=== PATIENT | female | born 1980 | race American Indian/Alaskan Native ===

== ENCOUNTER 2019-07-24 01:02 | Emergency (ER) | payer OTHER ==
[2019-07-24 01:43] LABS: Absolute Lymphocytes (CBC) 1.8 K/uL (0.7-4.9); Basophils % 0.5 % (0-1.3); Hematocrit 34.4 % (36.0-45.0); Lymphocytes % 23.4 % (15.3-44.8); MPV 8.4 fL (7.6-11.3); RBC Red Blood Cell Count 4.49 M/uL (3.86-4.86)
[2019-07-24 01:53] LABS: Albumin 3.6 g/dL (3.4-5.0); Bilirubin Direct 0.2 mg/dL (0-0.2); Bilirubin Total 0.6 mg/dL (0.2-1.0); Potassium 3.3 mmol/L (3.5-5.1); Protein, Total 7.6 g/dL (6.4-8.2)
[2019-07-24] MEDS ORDERED: NA CHLORIDE 0.9% 1,000 ML ONE (01:53)
[2019-07-24 02:44] LABS: Urine Bacteria <20 /HPF (<20); Urine Culture Reflex Order NOT NEEDED; Urine RBC >50 /HPF (NONE SEEN)
[2019-07-24 02:45] LABS: Urine Urothelial Cells <5 /HPF (NONE SEEN)
[2019-07-24 03:56] LABS: Urine Specific Gravity 1.015 (1.005-1.030)
[2019-07-24 03:57] LABS: Urine Blood 3+ (NEG); Urine Glucose NEGATIVE (NEG); Urine Protein NEGATIVE (NEG); Urine Specific Gravity 1.015 (1.005-1.030)
--- NOTE | 2019-07-24 04:19 | ER ---
Nurse's Notes [facility] Name: Lary La Age: 39 yrs Sex: Female : 1980 Arrival Date: 07/24/2019 Time: 01:06 Bed 14 Private MD: Diagnosis: Right flank pain, 4 mm Right UVJ stone, mild right hydronephrosis/hydroureter Presentation: 07/24 01:14 Presenting complaint: Patient states: she thinks she has a kidney stone she has had one bb in the past she has been having symptoms x 1 week of low abdominal pain and right sided back pain with urinary urgency but last night she started having worse pain. Transition of care: patient was not received from another setting of care. Onset of symptoms was July 16, 2019. Risk Assessment: Do you want to hurt yourself or someone else? Patient reports no desire to harm self or others. Initial Sepsis Screen: Does the patient meet any 2 criteria? No. Patient's initial sepsis screen is negative. Does the patient have a suspected source of infection? No. Patient's initial sepsis screen is negative. Care prior to arrival: None. 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 - Social history:: Smoking status: Patient/guardian denies using tobacco, Patient/guardian denies using alcohol. - Ebola Screening: : No symptoms or risks identified at this time. Screenin:28 Abuse screen: Denies threats or abuse. Nutritional screening: No deficits noted. jd3 Tuberculosis screening: No symptoms or risk factors identified. Fall Risk Ambulatory Aid- None/Bed Rest/Nurse Assist (0 pts). Gait- Normal/Bed Rest/Wheelchair (0 pts) Mental Status- Oriented to own ability (0 pts). Total [place] Fall Scale indicates No Risk (0-24 pts). Assessment: 01:27 General: Appears in no apparent distress. uncomfortable, Behavior is calm, cooperative, jd3 appropriate for age. Pain: Complains of pain in posterior aspect of right lateral abdomen and anterior aspect of right lateral abdomen Quality of pain is described as aching, sharp, Is intermittent. Neuro: Level of Consciousness is awake, alert, obeys commands, Oriented to person, place, time, situation. Cardiovascular: Capillary refill < 3 seconds Patient's skin is warm and dry. Respiratory: Airway is patent Respiratory effort is even, unlabored, Respiratory pattern is regular, symmetrical, Denies cough, shortness of breath. GI: Abdomen is round non-distended, Patient currently denies nausea, vomiting. : No signs and/or symptoms were reported regarding the genitourinary system. EENT: No signs and/or symptoms were reported regarding the EENT system. Derm: Skin is intact, Skin is dry, Skin is normal, Skin temperature is warm. Musculoskeletal: Circulation, motion, and sensation intact. Range of motion: intact in all extremities. 02:48 Reassessment: Patient appears in no apparent distress at this time. Patient and/or ca1 family updated on plan of care and expected duration. Pain level reassessed. Patient is alert, oriented x 3, equal unlabored respirations, skin warm/dry/pink. 03:59 Reassessment: Patient appears in no apparent distress at this time. Patient and/or jd3 family updated on plan of care and expected duration. Pain level reassessed. Patient is alert, oriented x 3, equal unlabored respirations, skin warm/dry/pink. awaiting for results. 04:58 Reassessment: Patient appears in no apparent distress at this time. Patient and/or jd3 family updated on plan of care and expected duration. Pain level reassessed. Patient is alert, oriented x 3, equal unlabored respirations, skin warm/dry/pink. Patient denies pain at this time. Patient states feeling better. Vital Signs: 01:18 BP 141 / 93; Pulse 83; Resp 16 S; Temp 97.9(O); Pulse Ox 99% on R/A; Weight 77.11 kg bb (R); Height 5 ft. 3 in. (160.02 cm) (R); Pain 8/10; 02:27 BP 126 / 90; Pulse 71; Resp 17 S; Pulse Ox 100% on R/A; ca1 04:00 BP 122 / 80; Pulse 83; Resp 18 S; Pulse Ox 100% on R/A; jd3 01:18 Body Mass Index 30.11 (77.11 kg, 160.02 cm) ED Course: 01:06 Patient arrived in ED. cl3 01:08 Jaziel Carlisle MD is Attending Physician. kdr 01:10 Luis Gonsalez, RN is Primary Nurse. jd3 01:17 Triage completed. bb 01:18 Arm band placed on Patient placed in an exam room, on a stretcher, on pulse oximetry. bb 01:23 Inserted saline lock: 20 gauge in left antecubital area, using aseptic technique. Blood jd3 collected. 01:29 Patient has correct armband on for positive identification. Placed in gown. Bed in low jd3 position. Call light in reach. Side rails up X 1. Adult w/ patient. 02:57 CT Stone Protocol In Process Unspecified. EDMS 03:08 CT completed. Patient tolerated procedure well. Patient moved to CT via wheelchair. Patient moved back from [place]. 04:17 Ruy Perez MD is Referral Physician. kdr 04:57 No provider procedures requiring assistance completed. IV discontinued, intact, jd3 bleeding controlled, No redness/swelling at site. Pressure dressing applied. Administered Medications: 01:52 Drug: NS 0.9% 1000 ml Route: IV; Rate: 1 bolus; Site: left antecubital; jd3 04:57 Follow up: Response: No adverse reaction; IV Status: Completed infusion jd3 Outcome: 04:18 Discharge ordered by . kdr 04:58 Discharged to home ambulatory, with family. jd3 04:58 Condition: stable 04:58 Discharge instructions given to patient, Instructed on discharge instructions, follow up and referral plans. medication usage, Demonstrated understanding of instructions, follow-up care, medications, Prescriptions given X 4. 04:59 Patient left the ED. jd3 Signatures: Dispatcher [employer] EDDC Jaziel Carlisle MD MD kdr Hagler, Ervin Rachelle Glover RN RN bb Davies, Jonathon, RN RN jKarla Dodson RN RN ca1 Lewis, Charde cl3
--- NOTE | 2019-07-24 04:20 | EDPHYS ---
Physician Documentation [facility] Name: Lary La Age: 39 yrs Sex: Female : 1980 Arrival Date: 07/24/2019 Time: 01:06 Bed 14 Private MD: ED Physician Jaziel Carlisle HPI: 07/24 05:02 This 39 yrs old Other Female presents to ER via Ambulatory with complaints of Possible kdr Kidney Stone. 05:02 The patient presents with The patient has had generalized low abdominal pain for the kdr past week. Last night, her pain became more right sided and reminded her of when she had had kidney stones previoiusly.. Onset: The symptoms/episode began/occurred gradually, 1 week(s) ago. The symptoms radiate to the right flank. Associated signs and symptoms: Pertinent positives: nausea, Pertinent negatives: anorexia, blood in stools, chest pain, constipation, diarrhea, dysuria, fever, headache, hematuria, palpitations, shortness of breath, vaginal discharge, vomiting, vomiting blood. The symptoms are described as achy, burning, crampy, dull, intermittent, vague. Modifying factors: The symptoms are alleviated by nothing, the symptoms are aggravated by nothing. Severity of pain: At its worst the pain was mild moderate in the emergency department the pain is unchanged. The patient has experienced a previous episode, many years ago. The patient has not recently seen a physician. 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 - Social history:: Smoking status: Patient/guardian denies using tobacco, Patient/guardian denies using alcohol. - Ebola Screening: : No symptoms or risks identified at this time. ROS: 05:02 Constitutional: Negative for fever, chills, and weight loss, Eyes: Negative for injury, kdr pain, redness, and discharge, ENT: Negative for injury, pain, and discharge, Neck: Negative for injury, pain, and swelling, Cardiovascular: Negative for chest pain, palpitations, and edema, Respiratory: Negative for shortness of breath, cough, wheezing, and pleuritic chest pain, Back: Negative for injury and pain, : Negative for injury, bleeding, discharge, and swelling, MS/Extremity: Negative for injury and deformity, Skin: Negative for injury, rash, and discoloration, Neuro: Negative for headache, weakness, numbness, tingling, and seizure activity. Psych: Negative for depression, anxiety, suicide ideation, homicidal ideation, and hallucinations, Allergy/Immunology: Negative for hives, rash, and allergies, Endocrine: Negative for neck swelling, polydipsia, polyuria, polyphagia, and marked weight changes, Hematologic/Lymphatic: Negative for swollen nodes, abnormal bleeding, and unusual bruising. 05:02 Abdomen/GI: Positive for nausea, Right CVA tenderness. Exam: 05:02 Constitutional: This is a well developed, well nourished patient who is awake, alert, kdr and in no acute distress. Head/Face: Normocephalic, atraumatic. Eyes: Pupils equal round and reactive to light, extra-ocular motions intact. Lids and lashes normal. Conjunctiva and sclera are non-icteric and not injected. Cornea within normal limits. Periorbital areas with no swelling, redness, or edema. Neck: Trachea midline, no thyromegaly or masses palpated, and no cervical lymphadenopathy. Supple, full range of motion without nuchal rigidity, or vertebral point tenderness. No Meningismus. Chest/axilla: Normal chest wall appearance and motion. Nontender with no deformity. No lesions are appreciated. Cardiovascular: Regular rate and rhythm with a normal S1 and S2. No gallops, murmurs, or rubs. Normal PMI, no JVD. No pulse deficits. Respiratory: Lungs have equal breath sounds bilaterally, clear to auscultation and percussion. No rales, rhonchi or wheezes noted. No increased work of breathing, no retractions or nasal flaring. Abdomen/GI: Soft, non-tender, with normal bowel sounds. No distension or tympany. No guarding or rebound. No evidence of tenderness throughout. Back: No spinal tenderness. No costovertebral tenderness. Full range of motion. Skin: Warm, dry with normal turgor. Normal color with no rashes, no lesions, and no evidence of cellulitis. MS/ Extremity: Pulses equal, no cyanosis. Neurovascular intact. Full, normal range of motion. Neuro: Awake and alert, GCS 15, oriented to person, place, time, and situation. Cranial nerves II-XII grossly intact. Motor strength 5/5 in all extremities. Sensory grossly intact. Cerebellar exam normal. Normal gait. Psych: Awake, alert, with orientation to person, place and time. Behavior, mood, and affect are within normal limits. Vital Signs: 01:18 BP 141 / 93; Pulse 83; Resp 16 S; Temp 97.9(O); Pulse Ox 99% on R/A; Weight 77.11 kg bb (R); Height 5 ft. 3 in. (160.02 cm) (R); Pain 8/10; 02:27 BP 126 / 90; Pulse 71; Resp 17 S; Pulse Ox 100% on R/A; ca1 04:00 BP 122 / 80; Pulse 83; Resp 18 S; Pulse Ox 100% on R/A; jd3 01:18 Body Mass Index 30.11 (77.11 kg, 160.02 cm) MDM: 04:18 Patient medically screened. kdr 05:02 Data reviewed: vital signs, nurses notes, lab test result(s), radiologic studies. kdr Counseling: I had a detailed discussion with the patient and/or guardian regarding: the historical points, exam findings, and any diagnostic results supporting the discharge/admit diagnosis, lab results, radiology results, the need for outpatient follow up. 07/24 01:08 Order name: Urine Culture [facility] 07/24 01:08 Order name: Urine Microscopic Only; Complete Time: 03:07 [facility] 07/24 01:11 Order name: Basic Metabolic Panel; Complete Time: 03:07 [facility] 07/24 01:11 Order name: CBC with Diff; Complete Time: 03:07 [facility] 07/24 01:11 Order name: Creatinine for Radiology; Complete Time: 03:07 [facility] 07/24 01:11 Order name: Hepatic Function; Complete Time: 03:07 [facility] 07/24 01:08 Order name: Urine Test (obtain specimen); Complete Time: 02:00 [facility] 07/24 01:08 Order name: Urine Dipstick-Ancillary (obtain specimen); Complete Time: 02:00 [facility] 07/24 01:11 Order name: Lipase; Complete Time: 03:07 [facility] 07/24 01:11 Order name: IV Saline Lock; Complete Time: 01:25 kdr 07/24 01:47 Order name: CT Stone Protocol [facility] 07/24 03:35 Order name: Urine Dipstick--Ancillary (enter results); Complete Time: 05:06 tn5 07/24 03:36 Order name: Urine --Ancillary (enter results); Complete Time: 05:06 tn5 07/24 01:11 Order name: Labs collected and sent; Complete Time: 01:25 kdr Administered Medications: 01:52 Drug: NS 0.9% 1000 ml Route: IV; Rate: 1 bolus; Site: left antecubital; jd3 04:57 Follow up: Response: No adverse reaction; IV Status: Completed infusion jd3 Disposition: 07/24/19 04:18 Discharged to Home. Impression: Right flank pain, 4 mm Right UVJ stone, mild right hydronephrosis/hydroureter. - Condition is Stable. - Discharge Instructions: Kidney Stones, [id number], Dietary Guidelines to Help Prevent Kidney Stones. - Prescriptions for Zofran 4 mg Oral Tablet - take 1 tablet by ORAL route every 4-6 hours As needed; 12 tablet. Flomax 0.4 mg Oral Capsule, Sust. Release 24 hr - take 1 capsule by ORAL route once daily 1/2 hour following the same meal each day; 10 capsule. Tramadol 50 mg Oral Tablet - take 1 tablet by ORAL route every 8 hours as needed; 12 tablet. Bactrim DS 800- 160 mg Oral Tablet - take 1 tablet by ORAL route every 12 hours for 3 days; 6 tablet. - Medication Reconciliation Form, Thank You Letter, Antibiotic Education, Prescription Opioid Use form. - Follow up: Private Physician; When: 1 - 2 days; Reason: If symptoms return, Further diagnostic work-up, Recheck today's complaints, Continuance of care, Re-evaluation by your physician. Follow up: Ruy Perez MD; When: 2 - 3 days; Reason: If symptoms return, Further diagnostic work-up, Recheck today's complaints, Continuance of care, Re-evaluation by your physician. - Problem is new. - Symptoms have improved. Signatures: Dispatcher [employer] EDJaziel Blas MD MD kdr Lakeshia Knight, REDUCING MACHINE OPERATOR-C REDUCING MACHINE OPERATOR-Csnw Rachelle Glover, RN RN bb Luis Gonsalez RN RN jd3 Corrections: (The following items were deleted from the chart) 04:59 04:18 07/24/2019 04:18 Discharged to Home. Impression: Right flank pain, 4 mm Right UVJ jd3 stone, mild right hydronephrosis/hydroureter. Condition is Stable. Forms are Medication Reconciliation Form, Thank You Letter, Antibiotic Education, Prescription Opioid Use. Follow up: Private Physician; When: 1 - 2 days; Reason: If symptoms return, Further diagnostic work-up, Recheck today's complaints, Continuance of care, Re-evaluation by your physician. Follow up: Ruy Perez; When: 2 - 3 days; Reason: If symptoms return, Further diagnostic work-up, Recheck today's complaints, Continuance of care, Re-evaluation by your physician. Problem is new. Symptoms have improved. kdr
[2019-07-24 05:07] VITALS: TEMP 97.9
[2019-07-24 05:08] VITALS: O2SAT 100
[2019-07-24 05:09] VITALS: BP 122/80
--- NOTE | 2019-07-25 11:31 | RAD REPORT ---
EXAM DESCRIPTION: CT - Stone Protocol - 07/24/2019 6:44 am CLINICAL HISTORY: Right flank pain, low abdominal pain COMPARISON: None Available. TECHNIQUE: CT of the abdomen and pelvis without IV contrast. Evaluation of the solid organs and vasc ulature is suboptimal due to lack of IV contrast. FINDINGS: Lung Bases: The visualized lung bases are clear. Bones: No destructive bone lesions identified. Abdomen: Liver: The liver has normal size and density. Gallbladder: Prior cholecystectomy. Spleen, Pancreas, and Adrenal Glands: The spleen, pancreas, and adrenal glands are unremarkable. Kidneys: There is a 0.4 cm obstructing calculus at the right UVJ producing mild right hydroureter and hydronephrosis. Bilateral nonobstructing nephrolithiasis. No left-sided hydronephrosis. Vasculature: The aorta and IVC have normal caliber and position. Stomach: The stomach and duodenum have normal course. Other: No free intraperitoneal air. No free fluid or lymphadenopathy. Pelvis: Bladder: Urinary bladder is otherwise unremarkable. Bowel: No dilated loops of large or small bowel. Appendix: Normal appendix. Pelvis: Uterus is not enlarged. IMPRESSION: 1. There is a 0.4 cm obstructing calculus the right UVJ producing mild right hydroureter and hydronephrosis. 2. Bilateral nonobstructing nephrolithiasis. This exam was performed according to our departmental dose-optimization program, which includes autom ated exposure control, adjustment of the mA and/or kV according to patient size and/or use of iterati ve reconstruction technique. Electronically signed by: Elias Kinsey 07/24/2019 3:22 AM [employer] TECHNICIAN Due to temporary technical issues with the PACS/Fluency reporting system, reports are being signed by the in house radiologist as a courtesy to ensure prompt reporting. The interpreting radiologist is f geraldinely responsible for the content of the report.
== END 2019-07-24 04:59 | disposition home or self-care (01) ==
LOC: ER 01:02
DX: N13.2 Hydronephrosis with renal and ureteral calculous obstruction (principal); Z87.442 Personal history of urinary calculi
CPT/HCPCS: 96361; 87088; 85025; 87086; 80048; 36415; 81025; 80076; 83690; 76377; 74176; 96360; 99284; J7030; 81003; 81015